=== PATIENT | female | born 1970 | race American Indian/Alaskan Native ===

== ENCOUNTER 2024-10-04 15:35 | Emergency (ER) | payer MEDICAID ==
[~2024-10-04] VITALS: Ht 165.1 cm; Wt 75.0 kg
[~2024-10-04 15:35] MED LIST: HYDR-4383 PO; NO HOME MEDS
[2024-10-04 15:53] VITALS: BP 135/82; PULSE 97; RESP 18; O2SAT 98
[2024-10-04] MEDS ORDERED: SULF1TAB49 PO (17:46)
--- NOTE | 2024-10-04 17:47 | Physician Documentation ---
History of Present Illness ~ Chief Complaint: Abscess Stated Complaint: BUG BITE Time Seen by MD: 16:38 Primary Medical Doctor: Ian HARTLEY Patient is seen today with complaints of a painful red and draining dump or abscess of her right lower buttocks our posterior upper thigh. Patient states symptoms started a few days ago. She denies any fevers or chills and has no other concern or complaint at this time. Tetanus Within 5 Years: No Medication Reconciliation Allergies: Coded Allergies: Penicillins (Verified Allergy, Intermediate, RASH, 10/04/24) Scheduled PRN Hydrocodone/Acetaminophen (Paige 5-325 Tablet), 1 TAB PO Q8H PRN for SEVERE PAIN Miscellaneous Medications Home Med List (No Home Medications), (Reported) Past Medical History Past Medical History: No Pertinent History Past Surgical History: cholecystectomy, orthopedic surgeries, other Patient History: (DM Type 2) Diabetes mellitus type 2 FAMILY/OTHER Alcohol Use: None Drug Use: methamphetamine Lives In: Homeless Review of Systems Constitutional: Denies: chills, fever, weakness Eyes: Denies: pain, blurred vision ENT: Denies: ear pain, nose pain, throat pain, mouth pain Respiratory: Denies: cough, shortness of breath Cardiovascular: Denies: chest pain, palpitations Gastrointestinal: Denies: abdominal pain, nausea, vomiting Genitourinary: Denies: burning, dysuria Female Genitalia: Denies: vaginal discharge, pelvic pain Neurological: Denies: headache, dizziness Musculoskeletal: Denies: pain, swelling Integumentary: Denies: rash, lesions Allergic/Immunologic: Denies: hives, itching Hematologic/Lymphatic: Denies: no symptoms reported Psychiatric: Denies: depression, anxiety Physical Exam Vital Signs: Temperature: 97.8, Source: Temporal, Heart Rate: 97, Respiratory Rate: 18, BP: 135/82, Pulse Oximetry: 98, Weight: 75.000 Physical Exam General: Awake and Alert, no acute distress. HEENT: Conjunctiva pink, Sclera clear, Mucus Membranes moist. Neck: Supple without masses and tenderness. Resp: Unlabored. Lungs clear to auscultation bilaterally. Heart: Regular Rate and rhythm, normal S1 and S2 without murmur, rub or gallop. Extremities: No cyanosis,clubbing or edema. Skin: Patient on exam has several dollars size erythematous indurated lesion of the skin of the right lower buttocks with centralized open draining wound. The opening measures a proximally 2 mm in diameter. The area is very tender to palp ation and warm. Progress Results/Orders Results/Orders Vital Signs 10/04/24 15:53 Temp 97.8 Pulse 97 Resp 18 B/P (MAP) 135/82 Pulse Ox 98 Medical Decision Making Findings Patient is seen today with complaints of a painful red and draining dump or abscess of her right lower buttocks our posterior upper thigh. Patient states symptoms started a few days ago. She denies any fevers or chills and has no other concern or complaint at this time. Patient was given prescription for Bactrim DS one tab by mouth twice a day for 10 days 1st dose given in the ED tonight. Patient will continue warm compress and will return to ED with any worsening, concerning or changing symptoms. Follow up with primary care in 2-5 days if no better as needed sooner. Departure Disposition: 01 HOME / SELF CARE / HOMELESS Impression: Primary Impression: Abscess Condition: Stable Discharge Instructions: Skin Abscess, [id number] Additional Instructions: Patient was given prescription for Bactrim DS one tab by mouth twice a day for 10 days 1st dose given in the ED tonight. Patient will continue warm compress and will return to ED with any worsening, concerning or changing symptoms. Follow up with primary care in 2-5 days if no better as needed sooner. Referrals: NO PRIMARY CARE PROVIDER (PCP) Prescriptions Sulfamethoxazole/Trimethoprim (Bactrim Ds Tablet) 800 Mg-160 Mg Tablet 1 TAB PO Q12H for 10 Days, #20 TAB Prov: SHASHANK DALLAS 10/04/24 Signature Scribe Signature: No scribe Attestation: No scribe SHASHANK DALLAS Oct 04, 2024 17:47
[2024-10-04] MEDS: sulfamethoxazole/trimethoprim DS (800/160mg) tablet PO STA (17:58)
[2024-10-04 18:02] VITALS: TEMP 97.8
== END 2024-10-04 18:03 | disposition home or self-care (01) ==
LOC: ER 15:36
DX: L02.31 Cutaneous abscess of buttock (principal); E11.9 Type 2 diabetes mellitus without complications; F15.90 Other stimulant use, unspecified, uncomplicated; Z88.0 Allergy status to penicillin; Z90.49 Acquired absence of other specified parts of digestive tract; Z59.00 Homelessness unspecified
CPT/HCPCS: 99283

== ENCOUNTER 2024-10-20 14:23 | Emergency (ER) | payer MEDICAID ==
[~2024-10-20] VITALS: Ht 165.1 cm; Wt 69.5 kg
--- NOTE | 2024-10-20 14:40 | Physician Documentation ---
History of Present Illness Chief Complaint: See Chief Complaint Stated Complaint: ABSCESS Primary Medical Doctor: Ian HPI Patient is a 54-year-old female that presents to the emergency department for evaluation of small area of tenderness and swelling below and laterally of her right nare. Patient reports that she had an abscess to her right lower extremity two weeks ago she was unable to get her antibiotic which was prescribed at that time. Has since that time healed on its own, she is concerned that she transferred the bacteria to her near as it is very sore and swollen. Medication Reconciliation Allergies: Coded Allergies: Penicillins (Verified Allergy, Intermediate, RASH, 10/20/24) Scheduled Sulfamethoxazole/Trimethoprim (Bactrim Ds Tablet), 1 TAB PO Q12H Scheduled PRN Hydrocodone/Acetaminophen (Chicken 5-325 Tablet), 1 TAB PO Q8H PRN for SEVERE PAIN Miscellaneous Medications Home Med List (No Home Medications), (Reported) Discontinued Medications Sulfamethoxazole/Trimethoprim (Bactrim Ds Tablet), 1 TAB PO Q12H Discontinued Reason: Auto Discontinued Past Medical History Past Medical History: No Pertinent History Past Surgical History: cholecystectomy, orthopedic surgeries, other Patient History: (DM Type 2) Diabetes mellitus type 2 FAMILY/OTHER Alcohol Use: None Drug Use: methamphetamine Lives In: Homeless Review of Systems ROS As stated above in the HPI, otherwise all systems are reviewed and negative. Physical Exam Vital Signs: Temperature: 97.5, Heart Rate: 70, Respiratory Rate: 16, BP: 90/68, Pulse Oximetry: 97, Weight: 69.550 Oxygen Flow Rate: 0 Physical Exam VITALS: Reviewed and as above. GENERAL: Alert, no apparent distress. HEENT: Normocephalic, atraumatic, PERRL, EOMI, dry mucosa, no erythema RESPIRATORY: Lungs clear, normal breath sounds, no respiratory distress. CHEST: No accessory muscle use, no retractions CV: Regular rate, rhythm, no edema, no murmur, No: JVD GI: Soft, non-tender, bowels sounds present, no rebound, guarding, or rigidity BACK: No CVA tenderness, or swelling MUSCULOSKELETAL No deformities, no edema SKIN: Warm and dry, edema underneath and lateral to the right nare, no erythema noted. NEURO: Oriented x4, No motor or sensory deficit PSYCH: Normal mood and affect, no agitation Progress Results/Orders Results/Orders Vital Signs 10/20/24 14:31 Temp 97.5 Pulse 70 Resp 16 B/P (MAP) 90/68 Pulse Ox 97 O2 Flow Rate 0 Medical Decision Making Findings This patient presents with initial presentation of local swelling concerning for infection. Sensitivity/pain to light touch around the erythematous area. No lymphangitic spread visible and no fluid pockets or fluctuance concerning for abscess noted. Low concern for osteomyelitis or DVT. No immune compromise, bullae, pain out of proportion, or rapid progression concerning for necrotizing fasciitis. Patient to be discharged home with Bactrim with follow up with their PMD. Differential Dx:Considerations: Include: AAA, -Complete, - Incomplete, -Inevitable, -Missed, -Threatened, Abruptio placentae, Angina/RI, Aortic dissection, Appendicitis, Bowel obstruction, Cholangitis, Cholelithasis, Constipation, Diverticular disease, Esophageal rupture, Esophagitis, Gastritis/PUD, Gastroenteritis, GI hemorrhage, Hernia, Hepatitis, Inflammatory BD, Ischemic bowel, Ovarian cyst/torsion, Pancreatitis, PID, Porphyria, Trauma, intraabdominal, Urinary obstruction, Urinary tract infection, Urolithiasis, Other Departure Disposition: 01 HOME / SELF CARE / HOMELESS Impression: Primary Impression: Skin infection Condition: Stable Additional Instructions: Today you were evaluated in the emergency department for concern for infection of her skin below your right nare. Lab work was negative for any concerning findings today. An antibiotic has been prescribed to. Please take the antibiotic until it is gone Tylenol or ibuprofen as needed for discomfort. Follow up with your primary care provider. Return to the emergency department if you have any worsening or recurrent symptoms or any additional concerning symptoms that we discussed here today. Referrals: NO PRIMARY CARE PROVIDER (PCP) Prescriptions Sulfamethoxazole/Trimethoprim (Bactrim Ds Tablet) 800 Mg-160 Mg Tablet 1 TAB PO Q12H for 10 Days, #20 TAB Prov: ADRIENNE LAKE 10/20/24 Education Educated: Patient Educated regarding: treatment, need for follow up Signature Scribe Signature: A Attestation: Scribed for Adrienne Lake by TOMASA Villalta . 10/22/24 17:39 ADRIENNE LAKE Oct 20, 2024 14:40
[2024-10-20 15:19] LABS: MEAN PLATELET VOLUME 9.2 FL (7.4-10.4); RED CELL DISTRIBUTION WIDTH 14.3 % (11.5-14.5)
[2024-10-20 15:29] LABS: CREATININE 1.19 MG/DL (0.40-0.90); TOTAL CARBON DIOXIDE 25.2 MMOL/L (24-32); eCRCL 50 ML/MIN; eGFR 48 ML/MIN
[2024-10-20 16:24] VITALS: BP 103/66; PULSE 62; RESP 16; TEMP 98; O2SAT 99
[2024-10-20] MEDS ORDERED: SULF1TAB49 PO (16:30)
== END 2024-10-20 16:34 | disposition home or self-care (01) ==
LOC: ER 14:23
DX: L08.9 Local infection of the skin and subcutaneous tissue, unspecified (principal); F15.90 Other stimulant use, unspecified, uncomplicated; E11.9 Type 2 diabetes mellitus without complications; Z88.0 Allergy status to penicillin; Z90.49 Acquired absence of other specified parts of digestive tract; Z59.00 Homelessness unspecified; Z79.899 Other long term (current) drug therapy
CPT/HCPCS: 36415; 80053; 85025; 99283